=== PATIENT | female | born 1995 | race African-American/Black ===

== ENCOUNTER 2020-07-26 20:28 | Emergency (ER) | payer MEDICAID ==
[~2020-07-26] VITALS: Ht 170.2 cm; Wt 100.0 kg
[2020-07-26 21:59] LABS: BASOPHILS % 0.6 % (0.0-2.0); HEMATOCRIT. 37.8 % (36.0-48.0); HEMOGLOBIN. 12.8 g/dL (12.0-16.0); LYMPHOCYTES % 18.8 % (20.0-50.0); MEAN CORPUSCULAR HEMOGLOBIN 27.7 pg (28.0-32.0); MEAN CORPUSCULAR VOLUME 81.6 fL (81.0-99.0); MEAN PLATELET VOLUME 7.3 fl (7.4-10.4); NEUTROPHILS % 71.6 % (40.0-76.0); PLATELET 367 x1000/uL (130-400); RED BLOOD CELL COUNT 4.64 mill/uL (4.2-5.4); RED CELL DISTRIBUTION WIDTH 14.9 % (11.6-14.6)
[2020-07-26 22:06] LABS: CHLORIDE 106 mEq/L (98-107)
[2020-07-26 22:09] LABS: ETHANOL BLOOD < 10 mg/dL; PROTHROMBIN TIME 10.4 sec (9.6-11.0)
[2020-07-26 22:14] LABS: HCG SCREEN NEGATIVE
[2020-07-26] MEDS ORDERED: SODIUM CHLORIDE 0.9% 1,000 ML IV ONE (22:30)
[2020-07-26] MEDS ORDERED: ONDANSETRON HCL 4MG/2ML INJ IV ONE (22:30)
[2020-07-26] MEDS ORDERED: MORPHINE SULFATE 4 MG/ML CPJ (NOT FOR IM USE) IV ONE (22:30)
[2020-07-26 23:02] LABS: CLARITY URINE TURBID (CLEAR); COLOR URINE RED (YELLOW); KETONES URINE 2+ (NEGATIVE); LEUKOCYTE ESTERASE URINE 3+ (NEGATIVE); NITRITE URINE POSITIVE (NEGATIVE); OCCULT BLOOD URINE 3+ (NEGATIVE); PROTEIN URINE 3+ (NEGATIVE); SPECIFIC GRAVITY URINE 1.028 (1.005-1.030)
[2020-07-26 23:19] LABS: *AMPHETAMINES SCREEN URINE NEGATIVE (NEGATIVE); *BARBITURATES SCREEN URINE NEGATIVE (NEGATIVE); *BENZODIAZEPINES SCREEN URINE NEGATIVE (NEGATIVE); *COCAINE SCREEN URINE NEGATIVE (NEGATIVE)
[2020-07-26 23:20] LABS: CANNABINOID URINE SCREEN NEGATIVE (NEGATIVE); METHADONE URINE SCREEN NEGATIVE (NEGATIVE); OPIATES URINE SCREEN NEGATIVE (NEGATIVE); PHENCYCLIDINE URINE SCREEN NEGATIVE (NEGATIVE)
[2020-07-26] MEDS ORDERED: IOHEXOL-300 100 ML BOTTLE ONE (23:46)
[2020-07-27 01:36] VITALS: BP 120/88
== END 2020-07-27 01:37 | disposition home or self-care (01) ==
LOC: ER 20:28
DX: N10 Acute pyelonephritis (principal)
CPT/HCPCS: 36415; 71045; 74177; 80053; 80305; 80320; 81003; 83605; 83690; 84703; 85025; 85610; 93005; 96361; 96374; 96375; 99285; J2270; J2405; J7030; Q9967; G0480

== ENCOUNTER 2020-11-18 07:43 | Emergency (ER) | payer MEDICAID ==
[~2020-11-18] VITALS: Ht 172.7 cm; Wt 88.0 kg
[2020-11-18 09:15] LABS: CHLORIDE 107 mEq/L (98-107)
[2020-11-18 09:16] LABS: BASOPHILS % 0.6 % (0.0-2.0); EOSINOPHILS % 1.8 % (0.0-5.0); HEMATOCRIT. 33.4 % (36.0-48.0); HEMOGLOBIN. 11.2 g/dL (12.0-16.0); LYMPHOCYTES % 21.2 % (20.0-50.0); MEAN CORPUSCULAR HEMOGLOBIN 27.7 pg (28.0-32.0); MEAN CORPUSCULAR VOLUME 83.1 fL (81.0-99.0); MEAN PLATELET VOLUME 7.1 fl (7.4-10.4); MONOCYTES % 11.1 % (2.0-8.0); NEUTROPHILS % 65.3 % (40.0-76.0); PLATELET 354 x1000/uL (130-400); RED BLOOD CELL COUNT 4.02 mill/uL (4.2-5.4); RED CELL DISTRIBUTION WIDTH 14.8 % (11.6-14.6)
[2020-11-18 09:28] LABS: B-HCG QUANTITATIVE 212 mIU/mL (<3)
[2020-11-18 10:08] LABS: CLARITY URINE CLEAR (CLEAR); COLOR URINE YELLOW (YELLOW); KETONES URINE TRACE (NEGATIVE); LEUKOCYTE ESTERASE URINE NEGATIVE (NEGATIVE); NITRITE URINE NEGATIVE (NEGATIVE); OCCULT BLOOD URINE NEGATIVE (NEGATIVE); PH URINE 5.5 (4.5-8.0); PROTEIN URINE NEGATIVE (NEGATIVE); SPECIFIC GRAVITY URINE 1.029 (1.005-1.030)
[2020-11-18] MEDS ORDERED: POLY17PO3 PO (10:41)
[2020-11-18 10:49] VITALS: BP 126/82
== END 2020-11-18 10:50 | disposition home or self-care (01) ==
LOC: ER 07:43
DX: O20.0 Threatened abortion (principal); O26.899 Other specified pregnancy related conditions, unspecified trimester; K59.00 Constipation, unspecified; Z3A.00 Weeks of gestation of pregnancy not specified
CPT/HCPCS: 36415; 76830; 76856; 80053; 81003; 81025; 84702; 85025; 86850; 86900; 93005; 99285

== ENCOUNTER 2020-11-20 12:20 | Emergency (ER) | payer MEDICAID ==
[~2020-11-20] VITALS: Ht 167.6 cm; Wt 107.0 kg
[~2020-11-20 12:20] MED LIST: POLY17PO3 PO
[2020-11-20 12:24] VITALS: BP 118/64
[2020-11-20 13:12] LABS: BASOPHILS % 0.6 % (0.0-2.0); EOSINOPHILS % 2.2 % (0.0-5.0); HEMATOCRIT. 33.8 % (36.0-48.0); HEMOGLOBIN. 11.5 g/dL (12.0-16.0); LYMPHOCYTES % 26.7 % (20.0-50.0); MEAN CORPUSCULAR HEMOGLOBIN 27.7 pg (28.0-32.0); MEAN CORPUSCULAR VOLUME 81.7 fL (81.0-99.0); MEAN PLATELET VOLUME 7.1 fl (7.4-10.4); MONOCYTES % 9.3 % (2.0-8.0); NEUTROPHILS % 61.2 % (40.0-76.0); PLATELET 361 x1000/uL (130-400); RED BLOOD CELL COUNT 4.14 mill/uL (4.2-5.4); RED CELL DISTRIBUTION WIDTH 14.8 % (11.6-14.6)
[2020-11-20 13:18] LABS: CHLORIDE 110 mEq/L (98-107)
[2020-11-20 13:30] LABS: B-HCG QUANTITATIVE 567 mIU/mL (<3)
== END 2020-11-20 14:37 | disposition home or self-care (01) ==
LOC: ER 12:20
DX: O20.0 Threatened abortion (principal); Z3A.00 Weeks of gestation of pregnancy not specified; J45.909 Unspecified asthma, uncomplicated; Z87.01 Personal history of pneumonia (recurrent); Z90.49 Acquired absence of other specified parts of digestive tract
CPT/HCPCS: 36415; 76830; 76856; 80053; 81025; 84702; 85025; 86850; 86900; 99284

== ENCOUNTER 2021-05-14 19:29 | Observation (INO) | payer MEDICARE, MEDICAID ==
[~2021-05-14] VITALS: Ht 167.6 cm; Wt 108.0 kg
[2021-05-14] MEDS ORDERED: LACTATED RINGERS 1,000 ML IV SCH (20:45)
[2021-05-14 21:07] LABS: CLARITY URINE TURBID (CLEAR); COLOR URINE YELLOW (YELLOW); KETONES URINE TRACE (NEGATIVE); LEUKOCYTE ESTERASE URINE 3+ (NEGATIVE); NITRITE URINE NEGATIVE (NEGATIVE); OCCULT BLOOD URINE TRACE (NEGATIVE); PROTEIN URINE TRACE (NEGATIVE)
[2021-05-14] MEDS ORDERED: CEFAZOLIN 2,000 MG in DEXT 5% WATER 100 ML IV NR (22:00)
[2021-05-14] MEDS ORDERED: PNV1TABL50 PO (22:04)
== END 2021-05-14 22:55 | disposition home or self-care (01) ==
LOC: 8 EST LDRP 19:29
PROVIDERS: ADMIT Obstetrics & Gynecology; ATTEND Obstetrics & Gynecology
DX: O99.891 Other specified diseases and conditions complicating pregnancy (principal); M54.5 Low back pain; O26.893 Other specified pregnancy related conditions, third trimester; R10.9 Unspecified abdominal pain; O62.9 Abnormality of forces of labor, unspecified; Z3A.30 30 weeks gestation of pregnancy
CPT/HCPCS: 59025; 81003; 96361; 96365; A4215; G0378; J0690; J7060; 96360; 99281; G0379

== ENCOUNTER 2021-06-13 14:46 | Observation (INO) | payer MEDICARE, MEDICAID ==
[~2021-06-13] VITALS: Ht 170.2 cm; Wt 108.0 kg
[~2021-06-13 14:46] MED LIST changes: +PNV1TABL50 PO
== END 2021-06-13 16:15 | disposition home or self-care (01) ==
LOC: 8EST 14:46 → 8 EST A/PP 15:33
PROVIDERS: ADMIT Obstetrics & Gynecology; ATTEND Obstetrics & Gynecology
DX: O99.891 Other specified diseases and conditions complicating pregnancy (principal); M79.10 Myalgia, unspecified site; R51.9 Headache, unspecified; K08.89 Other specified disorders of teeth and supporting structures; O62.9 Abnormality of forces of labor, unspecified; Z3A.34 34 weeks gestation of pregnancy
CPT/HCPCS: 59025; 99281; G0378

== ENCOUNTER 2021-06-16 06:39 | Observation (INO) | payer MEDICARE, MEDICAID ==
[~2021-06-16] VITALS: Ht 170.2 cm; Wt 104.3 kg
[2021-06-16] MEDS ORDERED: ACETAMINOPHEN 500MG TABLET PO ONE (08:45)
== END 2021-06-16 10:45 | disposition home or self-care (01) ==
LOC: 8 EST LDRP 06:39
PROVIDERS: ADMIT Obstetrics & Gynecology; ATTEND Obstetrics & Gynecology
DX: O99.891 Other specified diseases and conditions complicating pregnancy (principal); M54.9 Dorsalgia, unspecified; K08.89 Other specified disorders of teeth and supporting structures; Z3A.35 35 weeks gestation of pregnancy
CPT/HCPCS: 59025; 76815; 76818; G0378; 99281

== ENCOUNTER 2021-06-22 16:22 | Observation (INO) | payer MEDICARE, MEDICAID ==
[~2021-06-22 16:22] MED LIST changes: -POLY17PO3 PO
== END 2021-06-22 17:30 | disposition home or self-care (01) ==
LOC: INTOOBSV 16:22 → 8 EST LDRP 16:22
PROVIDERS: ADMIT Obstetrics & Gynecology; ATTEND Obstetrics & Gynecology
DX: O99.891 Other specified diseases and conditions complicating pregnancy (principal); M54.50 Low back pain, unspecified; Z3A.36 36 weeks gestation of pregnancy
CPT/HCPCS: 59025; G0378; 99281

== ENCOUNTER 2021-07-03 15:29 | Observation (INO) | payer MEDICARE, MEDICAID ==
[~2021-07-03] VITALS: Ht 170.2 cm; Wt 103.4 kg
[2021-07-03] MEDS ORDERED: DEXT 5%/LACTATED RINGERS 1,000 ML IV SCH (16:30)
[2021-07-03 16:52] LABS: CLARITY URINE CLOUDY (CLEAR); COLOR URINE DARK YELLOW (YELLOW); KETONES URINE 1+ (NEGATIVE); LEUKOCYTE ESTERASE URINE NEGATIVE (NEGATIVE); NITRITE URINE NEGATIVE (NEGATIVE); OCCULT BLOOD URINE NEGATIVE (NEGATIVE); PH URINE 5.5 (4.5-8.0); PROTEIN URINE 1+ (NEGATIVE); SPECIFIC GRAVITY URINE 1.026 (1.005-1.030); UROBILINOGEN URINE 0.2 E.U./dL (0.2-1.0)
[2021-07-03 16:56] LABS: BASOPHILS % 0.5 % (0.0-2.0); EOSINOPHILS % 0.5 % (0.0-5.0); HEMATOCRIT. 30.5 % (36.0-48.0); HEMOGLOBIN. 10.9 g/dL (12.0-16.0); LYMPHOCYTES % 18.9 % (20.0-50.0); MEAN CORPUSCULAR HEMOGLOBIN 29.9 pg (28.0-32.0); MEAN CORPUSCULAR VOLUME 83.7 fL (81.0-99.0); MEAN PLATELET VOLUME 7.1 fl (7.4-10.4); MONOCYTES % 9.2 % (2.0-8.0); NEUTROPHILS % 70.9 % (40.0-76.0); PLATELET 342 x1000/uL (130-400); RED BLOOD CELL COUNT 3.65 mill/uL (4.2-5.4); RED CELL DISTRIBUTION WIDTH 12.9 % (11.6-14.6)
[2021-07-03 17:03] LABS: CHLORIDE 109 mEq/L (98-107)
== END 2021-07-03 17:30 | disposition home or self-care (01) ==
LOC: 8 EST LDRP 15:29
PROVIDERS: ADMIT Obstetrics & Gynecology; ATTEND Obstetrics & Gynecology
DX: O26.893 Other specified pregnancy related conditions, third trimester (principal); R10.9 Unspecified abdominal pain; R19.7 Diarrhea, unspecified; O99.891 Other specified diseases and conditions complicating pregnancy; M54.9 Dorsalgia, unspecified; Z3A.37 37 weeks gestation of pregnancy
CPT/HCPCS: 36415; 59025; 80053; 81003; 85025; A4215; G0378; 99281; G0379

== ENCOUNTER 2024-10-30 19:00 | Emergency (ER) | payer MEDICAID ==
[~2024-10-30] VITALS: Ht 167.6 cm; Wt 96.0 kg
[2024-10-30 19:03] VITALS: BP 143/85; PULSE 111; RESP 20; TEMP 37; O2SAT 100
[2024-10-30] MEDS: SODIUM CHLORIDE 0.9% 1,000 ML IV ONE (20:49)
[2024-10-30] MEDS: ONDANSETRON HCL 4MG/2ML INJ IV STA (20:49)
[2024-10-30] MEDS: MORPHINE SULFATE 4 MG/ML INJ (FOR IV/IM USE) IV STA (20:49)
[2024-10-30] MEDS: KETOROLAC 15MG/ML VIAL IV ONE (20:50)
[2024-10-30 21:04] LABS: BASOPHILS % 0.4 % (0.0-2.0); EOSINOPHILS % 0.8 % (0.0-5.0); HEMATOCRIT. 37.2 % (36.0-48.0); HEMOGLOBIN. 12.4 g/dL (12.0-16.0); LYMPHOCYTES % 11.4 % (20.0-50.0); MEAN CORPUSCULAR HEMOGLOBIN 27.6 pg (28.0-32.0); MEAN CORPUSCULAR HGB CONC 33.3 g/dL (31.0-37.0); MEAN CORPUSCULAR VOLUME 83.1 fL (81.0-99.0); MONOCYTES % 6.4 % (2.0-8.0); PLATELET 535 x1000/uL (130-400); RED BLOOD CELL COUNT 4.47 mill/uL (4.2-5.4); RED CELL DISTRIBUTION WIDTH 14.2 % (11.6-14.6); WHITE BLOOD COUNT 8.8 x1000/uL (4.5-11.0)
[2024-10-30 21:09] LABS: CARBON DIOXIDE 27 mEq/L (21-32); CHLORIDE 100 mEq/L (98-107); POTASSIUM 4.2 mEq/L (3.5-5.1); SODIUM 139 mEq/L (136-145)
[2024-10-30 21:10] LABS: CALCIUM 10.2 mg/dL (8.7-10.4)
[2024-10-30 21:15] LABS: CREATININE 0.6 mg/dL (0.6-1.0); GLUCOSE 103 mg/dL (70-105); UREA NITROGEN BLOOD 9 mg/dL (9-23)
[2024-10-30 21:16] LABS: ALANINE AMINOTRANSFERASE 20 IU/L (10-49); ASPARTATE AMINOTRANSFERASE 34 IU/L (<34)
[2024-10-30 21:17] LABS: ALBUMIN 4.7 g/dL (3.2-4.8); BILIRUBIN DIRECT < 0.1 mg/dL (<=3.0); BILIRUBIN TOTAL 0.5 mg/dL (0.1-1.0); PROTEIN TOTAL 8.3 g/dL (6.0-8.3)
[2024-10-30 23:27] LABS: CLARITY URINE CLEAR (CLEAR); COLOR URINE YELLOW (YELLOW); GLUCOSE URINE NEGATIVE (NEGATIVE); KETONES URINE NEGATIVE (NEGATIVE); LEUKOCYTE ESTERASE URINE 1+ (NEGATIVE); NITRITE URINE NEGATIVE (NEGATIVE); OCCULT BLOOD URINE 3+ (NEGATIVE); PROTEIN URINE NEGATIVE (NEGATIVE); SPECIFIC GRAVITY URINE 1.021 (1.005-1.030)
[2024-10-30] MEDS: IOHEXOL-300 100 ML BOTTLE ONE (23:31)
[2024-10-31 00:22] LABS: SQUAMOUS EPITHELIAL CELL URINE 1+ /lpf (RARE/1+)
[2024-10-31 00:23] LABS: BACTERIA URINE NONE SEEN
[2024-10-31] MEDS ORDERED: IBUP-2028 MT (00:33)
== END 2024-10-31 01:16 | disposition home or self-care (01) ==
LOC: ER 19:00
DX: M25.571 Pain in right ankle and joints of right foot (principal); M79.671 Pain in right foot; R10.32 Left lower quadrant pain; J45.909 Unspecified asthma, uncomplicated; Z87.01 Personal history of pneumonia (recurrent); Z90.49 Acquired absence of other specified parts of digestive tract; W19.XXXA Unspecified fall, initial encounter; Y93.89 Activity, other specified; Y92.89 Other specified places as the place of occurrence of the external cause; Y99.8 Other external cause status
CPT/HCPCS: 99285; 74177; 96374; 96375; 96361; 80076; 80048; 81003; 83690; 85025; 87086; 36415; 73610; 73630; 93005; J1885; Q9967; J2405; J2270; J7030